=== PATIENT | female | born 1965 | race Caucasian/White ===

== ENCOUNTER 2024-03-29 08:47 | Day surgery (SDC) | payer MEDICAID ==
[~2024-03-29] VITALS: Ht 157.5 cm; Wt 70.8 kg
[2024-03-29] MEDS ORDERED: BENZOCAINE 20% 0.5mL UD SPRAY MM ONE (09:38)
[2024-03-29] MEDS ORDERED: MIDAZOLAM HCL 5 MG/5 ML VIAL ONE (09:39)
[2024-03-29] MEDS ORDERED: MEPERIDINE 100 MG INJ. 100 MG/ML VIAL ONE (09:39)
[2024-03-29 13:01] VITALS: O2SAT 98
[2024-03-29 13:07] VITALS: BP_SYST 114; PULSE 64; RESP 16
== END 2024-03-29 11:22 | disposition home or self-care (01) ==
LOC: SGI 08:47 → SMU 08:50 → SGI 11:22
PROVIDERS: ATTEND Internal Medicine
DX: R10.9 Unspecified abdominal pain (principal); D12.4 Benign neoplasm of descending colon; D12.5 Benign neoplasm of sigmoid colon; K29.50 Unspecified chronic gastritis without bleeding; K31.89 Other diseases of stomach and duodenum; K21.9 Gastro-esophageal reflux disease without esophagitis; K57.30 Diverticulosis of large intestine without perforation or abscess without bleeding; K64.8 Other hemorrhoids; I10 Essential (primary) hypertension; E78.5 Hyperlipidemia, unspecified; J45.909 Unspecified asthma, uncomplicated; Z79.899 Other long term (current) drug therapy; Z87.891 Personal history of nicotine dependence
CPT/HCPCS: 45380; 43239; 45385; 88305; 88312; 88313; 99152; G0378; J2250; J2175